=== PATIENT | male | born 1930 | race Caucasian/White ===

== ENCOUNTER 2020-02-24 14:47 | Inpatient (IN) | payer OTHER, SELFPAY ==
[~2020-02-24] VITALS: Ht 185.4 cm; Wt 73.9 kg
[~2020-02-24 14:47] MED LIST: ETOMIDATE 20 MG/ 10 ML VIAL (AMIDATE) IVP ONE; METOCLOPRAMIDE HCL 10 MG/2 ML VIAL IVP ONE; MIDAZOLAM HCL 5 MG/5 ML VIAL IVP ONE; NS IRRIG SOLN 1000 ML IR ONE; ONDANSETRON HCL 4 MG/2 ML VIAL IVP ONE; ROCURONIUM BROMIDE 10 MG/ML (ZEMURON) IV ONE; SEVOFLURANE 15 MIN GAS INH ONE; SUCCINYLCHOLINE CHLORIDE 20 MG/ML(QUELICIN) IVP ONE; WATER FOR IRRIGATION,STERILE 1,000 ML IRRIG.SOLN IR ONE
[2020-02-24 15:11] VITALS: BP_SYST 138
--- NOTE | 2020-02-24 15:18 | NUR ---
CARLENE Vazquez at bedside examining patient.
--- NOTE | 2020-02-24 15:18 | NUR ---
Pt to room 6. placed in [facility], with side rails up. Gown on, Monitor placed.
[2020-02-24 15:37] LABS: BASOPHILS % (AUTO) 0.1 % (0.0-2.0); HEMOGLOBIN 11.6 g/dL (14.0-18.0); LYMPHOCYTES # (AUTO) 0.7 K/uL (1.0-5.5); LYMPHOCYTES % (AUTO) 3.9 % (20.5-51.5); MEAN CORPUSCULAR HEMOGLOBIN 28 pg (27-31); MEAN CORPUSCULAR HGB CONC 32 % (32-36); MEAN CORPUSCULAR VOLUME 86 fL (79.0-98.0); MONOCYTES # (AUTO) 0.7 K/uL (0.0-1.0); MONOCYTES % (AUTO) 3.6 % (1.7-9.3); NEUTROPHILS # (AUTO) 17.4 K/uL (1.8-7.7); NEUTROPHILS % (AUTO) 92.4 % (40.0-70.0); PLATELET COUNT (AUTO) 111 K/uL (130-430); RED BLOOD CELL COUNT(AUTO) 4.18 MIL/uL (4.2-6.2); RED CELL DISTRIBUTION WIDTH 14.2 % (9.0-15.0); WHITE BLOOD COUNT (AUTO) 18.8 K/uL (4.8-10.8)
--- NOTE | 2020-02-24 16:00 | NUR ---
Pt is in [facility] with side rails up, gown on and responding well to verbal stimuli. Speaking loud enough to allow patient to hear, with hearing aides in use.
[2020-02-24 16:10] LABS: INR 1.1 (0.80-1.20); PROTHROMBIN TIME 11.2 SECS (9.5-12.5)
[2020-02-24 16:19] LABS: ANION GAP 14 (5-15); CALCIUM 8.9 mg/dL (8.4-11.0); CHLORIDE 106 mmol/L (98-107); CREATININE 2.01 mg/dL (0.55-1.30); GLUCOSE 139 mg/dL (70-99); POTASSIUM 3.9 mmol/L (3.5-5.1); SODIUM SERUM 140 mmol/L (136-145); UREA NITROGEN, BLOOD 28 mg/dL (8-21)
[2020-02-24 16:27] LABS: ALANINE AMINOTRANSFERASE 191 U/L (12-78); ASPARTATE AMINOTRANSFERASE 286 U/L (10-37); TOTAL BILIRUBIN 4.5 mg/dL (0.0-1.0)
[2020-02-24 16:43] LABS: BILIRUBIN,URINE 1+ (NEGATIVE); GLUCOSE,URINE NEGATIVE (NEGATIVE); KETONES,URINE NEGATIVE (NEGATIVE); LEUKOCYTE ESTERASE ,URINE NEGATIVE (NEGATIVE); NITRITE, URINE NEGATIVE (NEGATIVE); PH,URINE 5.5 (5.0-8.0); PROTEIN URINE 1+ (NEGATIVE)
[2020-02-24] MEDS ORDERED: ASPIRIN 325 MG TABLET PO ONE (16:45)
[2020-02-24 16:49] LABS: BLOOD, URINE TRACE (NEGATIVE); CLARITY/URINE HAZY (CLEAR); COLOR,URINE AMBER (YELLOW)
[2020-02-24] MEDS ORDERED: ASPIRIN 325 MG TABLET ONE (16:53)
--- NOTE | 2020-02-24 17:03 | NUR ---
Pt able to urinate in urinal with assistance. No able to stand without help. Pt Continues to understand and is alert and oriented to person, event and time. HR is low, provider aware.
--- NOTE | 2020-02-24 17:27 | NUR ---
Patient will be admitted to care of Dr. Rodriguez. Admitted to telemetry unit. Waiting for room assignment. SBAR report to be given at bedside with opportunity for questions.
[2020-02-24 17:30] LABS: BACTERIA,URINE FEW /HPF (None Seen); COARSE GRANULAR CASTS,URINE 0-10 /LPF (None Seen); FINE GRANULAR CASTS,URINE 0-10 /LPF (None Seen); MUCUS,URINE 1+ /LPF (None Seen); RBC,URINE 0-3 /HPF (0-3)
--- NOTE | 2020-02-24 17:36 | NUR ---
Unable to obtain medication reconcilliation at this time.
[2020-02-24 17:47] LABS: FREE T4 (FREE THYROXINE) 1.2 ng/dL (0.6-1.6); THYROID STIMULATING HORMONE 1.07 uIu/mL (0.34-4.82)
[2020-02-24 17:48] LABS: DIGOXIN < 0.1 ng/mL (0.80-2.00)
[2020-02-24] MEDS: metroNIDAZOLE 500 mg/NS 100 ML IV SCH (18:28)
[2020-02-24] MEDS ORDERED: cefTRIAXone 2 GM VIAL ONE (18:28)
[2020-02-24] MEDS ORDERED: MORPHINE 2 MG/ML INJ. SYRINGE IVP PRN (18:30)
[2020-02-24] MEDS ORDERED: ONDANSETRON HCL 4 MG/2 ML VIAL IVP PRN (18:30)
[2020-02-24] MEDS ORDERED: NALOXONE HCL 0.4 MG/ML AMP (NARCAN) IVP PRN (18:30)
[2020-02-24] MEDS ORDERED: PIPERACILLIN/TAZO 3.375/DEX-IS 50 ML IV SCH (18:30)
[2020-02-24] MEDS ORDERED: PIPERACILLIN/TAZO 3.375/DEX-IS 50 ML IV ONE (19:00)
--- NOTE | 2020-02-24 19:30 | NUR ---
Medication reconciliation completed with information provided by Daughter via telephone. Any prior medication reconciliation on file was reviewed and corrected.
[2020-02-24] MEDS: NACL 0.9% 1,000 ML IV SCH (19:36)
[2020-02-24] MEDS ORDERED: VITD400 PO (19:54)
[2020-02-24] MEDS ORDERED: NOR10 PO (19:54)
[2020-02-24] MEDS ORDERED: TIMO5DRO15 EACH EYE (19:54)
[2020-02-24] MEDS ORDERED: ALPHAGAN1 OP (19:54)
[2020-02-24] MEDS ORDERED: ISOS60TA4 PO (19:54)
[2020-02-24] MEDS ORDERED: LOSA100T3 PO (19:54)
[2020-02-24] MEDS ORDERED: CHOL2400 MC (19:54)
[2020-02-24] MEDS ORDERED: CARV12.548 PO (19:54)
[2020-02-24] MEDS ORDERED: AZOEYE BOTH EYES (19:54)
--- NOTE | 2020-02-24 19:55 | NUR ---
Spoke to Daughter. States patient is full code at this time.
--- NOTE | 2020-02-24 20:05 | NUR ---
Patient will be admitted to care of Dr. Austin. Admitted to Telemetry unit. Will go to room 105 B. Belongings list completed. Complete and up to date summary report printed. SBAR report to be given at bedside with opportunity for questions.
--- NOTE | 2020-02-24 20:18 | NUR ---
ADMIT NOTE Received pt from ER to the floor with a diagnosis of NSTEMI. Admission process initiated. patient oriented to pain management, safety and call light-teach back done.
[2020-02-24 22:24] VITALS: BP_SYST 116
[2020-02-24] MEDS ORDERED: [UNRECOGNIZED DRUG - CODE] (22:45)
--- NOTE | 2020-02-24 23:00 | NUR ---
RN ROUNDS: Patient is laying in bed and appears to be asleep. He is on 2 L NC with unlabored breathing. Patient is on tele monitor with controlled AFIB. SCD's have been applied as ordered. Patient is NPO. Ensured all safety precautions. Bed is locked and in the lowest position with alarm on and call light within reach. Will continue to monitor patient.
--- NOTE | 2020-02-24 23:43 | NUR ---
PAGED FOR CONSULT FRANCIS STEEN REASON FOR CONSULT: NSTEMI ORDERING PHYSICIAN: DR. CALLAWAY DIALED: [phone] SPOKE TO: ARBEN
[2020-02-25] VITALS: BP_SYST 153
[2020-02-25] MEDS: PIPERACILLIN/TAZOBACTAM 2.25 GM/ D5W 50 ML IV SCH ×8 (00:09→17:35)
--- NOTE | 2020-02-25 00:09 | NUR ---
MEDICATION ADMINISTRATION: Patient is laying is laying in bed with no s/s of distress or discomfort. He is in stable condition. I have administered Zosyn as ordered by , pt tolerating well. Will continue to monitor patient.
[2020-02-25] MEDS ORDERED: FLU VACC QS2020-21 (6 mos & up) 0.5 ML/SYRINGE I.M. PRN (01:00)
--- NOTE | 2020-02-25 02:10 | NUR ---
RN ROUNDS: Patient is resting in bed and appears to be asleep. He has unlabored breathing on 2 L of O2 via NC, tolerating well. Patient is not exhibiting any s/s of distress or discomfort. Will continue to monitor patient. Bed is in the lowest position with alarm on and call light within reach.
--- NOTE | 2020-02-25 04:15 | NUR ---
RN ROUNDS: Patient is laying in bed and is currently asleep. He is not exhibiting any s/s of distress or discomfort. Will continue to monitor patient.
--- NOTE | 2020-02-25 06:07 | NUR ---
PAGED FOR CONSULT REASON FOR CONSULT: CHOLECYSTITIS ORDERING PHYSICIAN: DIALED:[phone] SPOKE TO: BRITTA
--- NOTE | 2020-02-25 06:48 | NUR ---
CLOSING NOTE: Patient is laying in bed, A & O x4. He is not exhibiting any s/s of discomfort or distress. Patient has agreed to and signed consent for HIDA Scan to be done this morning. He does not have any concerns at this time. IV is infusing on RAC, patent and intact. Patient uses the urinal as needed which is at bed side. Ensured all safety precautions. Bed is locked and in the lowest position with alarm on, call light within reach. All needs were met throughout shift. Will endorse to dayshift nurse.
[2020-02-25 07:11] LABS: BASOPHILS % (AUTO) 0.1 % (0.0-2.0); HEMATOCRIT 35.7 % (36-54); HEMOGLOBIN 11.8 g/dL (14.0-18.0); LYMPHOCYTES # (AUTO) 1.1 K/uL (1.0-5.5); LYMPHOCYTES % (AUTO) 4.9 % (20.5-51.5); MEAN CORPUSCULAR HEMOGLOBIN 28 pg (27-31); MEAN CORPUSCULAR HGB CONC 33 % (32-36); MEAN CORPUSCULAR VOLUME 85 fL (79.0-98.0); MONOCYTES # (AUTO) 0.7 K/uL (0.0-1.0); MONOCYTES % (AUTO) 3.1 % (1.7-9.3); NEUTROPHILS % (AUTO) 91.9 % (40.0-70.0); PLATELET COUNT (AUTO) 82 K/uL (130-430); RED CELL DISTRIBUTION WIDTH 14.4 % (9.0-15.0); WHITE BLOOD COUNT (AUTO) 21.8 K/uL (4.8-10.8)
--- NOTE | 2020-02-25 07:25 | NUR ---
Nutrition Update Wellington Scale 15 noted. Pt admitted for NSTEMI Diet: NPO BMI: 21.5 kg/m2 RD to follow per nutrition care standards.
[2020-02-25 07:28] LABS: ALANINE AMINOTRANSFERASE 139 U/L (12-78); ALBUMIN 2.6 g/dL (3.4-4.8); ANION GAP 13 (5-15); ASPARTATE AMINOTRANSFERASE 136 U/L (10-37); CALCIUM 8.3 mg/dL (8.4-11.0); CHLORIDE 107 mmol/L (98-107); CREATININE 1.42 mg/dL (0.55-1.30); GLUCOSE 102 mg/dL (70-99); POTASSIUM 4.1 mmol/L (3.5-5.1); SODIUM SERUM 141 mmol/L (136-145); TOTAL BILIRUBIN 4.5 mg/dL (0.0-1.0); UREA NITROGEN, BLOOD 29 mg/dL (8-21)
--- NOTE | 2020-02-25 07:30 | NUR ---
Notes- Patient is in hida scan at this time.
--- NOTE | 2020-02-25 10:00 | NUR ---
Notes Pt came back from Hida scan, awake and oriented but hard of hearing, has two bilateral hearing aid. ambulate with assistance. denies any pain or discomfort at this time. keep npo per Dr. Osmar HEREDIA. IVF infusing well. call light in reach. Enc to call for help as needed. bed alarm on.
[2020-02-25 10:07] VITALS: BP_SYST 157
[2020-02-25] MEDS: NACL 0.9% 1,000 ML IV SCH ×2 (10:19→14:26)
--- NOTE | 2020-02-25 11:00 | NUR ---
MRI- called MRI, they will do MRCP around [id number]
--- NOTE | 2020-02-25 11:28 | NUR ---
paged Paged Dr. Prasad re: Hida scan results. Waiting for MD to call back.
--- NOTE | 2020-02-25 12:04 | NUR ---
CONSULTATION: REASON FOR CONSULT: ABD PAIN CONSULTING PHYSICIAN: FELI ROSSI MD ORDERED BY: MEME CALLAWAY DR WAS AWARE OF CONSULT WHILE IN HOSPITAL
[2020-02-25 12:35] VITALS: BP_SYST 148
--- NOTE | 2020-02-25 14:00 | NUR ---
Notes In bed, watching tv. denies any pain or discomfort.still waiting for the MRCP
--- NOTE | 2020-02-25 15:20 | NUR ---
Notes Pt went to MRI at this time.
--- NOTE | 2020-02-25 16:56 | NUR ---
Notes pt just came back from MRI, No distress noted. make patient comfortable in bed.
[2020-02-25 16:57] VITALS: BP_SYST 143
--- NOTE | 2020-02-25 18:16 | NUR ---
Notes resting at this time, MRI results not in the computer yet. will endorse to night nurse
[2020-02-25] MEDS: LEVOFLOXACIN 500 MG/D5W 100 ML IV SCH (18:21)
--- NOTE | 2020-02-25 19:30 | NUR ---
OPENING NOTES: Received report from dayshift nurse. Patient is A & 0 x4 with no s/s of distress or discomfort. He is on room air with unlabored breathing. IV noted on RAC, dressing patent and intact. Patient has urinal at bedside. Ensured all safety precautions. Bed is in the lowest position with alarm on. Call light within reach.
[2020-02-25 20:00] VITALS: BP_SYST 149
--- NOTE | 2020-02-25 21:30 | NUR ---
RN ROUNDS: Patient is resting in bed with no s/s of distress or discomfort. He states he is happy that he got to speak with his daughter. Patient does not have any concerns at this time. Bed is in the lowest position and call light within reach. Will continue to monitor.
--- NOTE | 2020-02-25 23:00 | NUR ---
RN ROUNDS: Patient is resting in bed and appears to be asleep. He has unlabored breathing on room air. Will continue to monitor.
[2020-02-26] VITALS: BP_SYST 165
--- NOTE | 2020-02-26 01:00 | NUR ---
RN ROUNDS: Patient is laying in bed and is not having any s/s of distress or discomfort. Bed is in the lowest position with alarm on and call light within reach. Will continue to monitor.
[2020-02-26] MEDS: PIPERACILLIN/TAZOBACTAM 2.25 GM/ D5W 50 ML IV SCH ×10 (01:16→23:40)
[2020-02-26] MEDS: NACL 0.9% 1,000 ML IV SCH (01:23)
--- NOTE | 2020-02-26 03:06 | NUR ---
RN ROUNDS: Patient is laying in bed and appears to be asleep. He is in stable condition. Patient is on room air and has unlabored breathing. Bed is in the lowest position and call light within reach. Will continue to monitor patient.
--- NOTE | 2020-02-26 05:31 | NUR ---
RN ROUNDS: Patient is resting in bed with no s/s of distress or discomfort. His bed is in the lowest position with alarm on and call light within reach. Will continue to monitor patient.
[2020-02-26] MEDS ORDERED: D5NS 500 ML IV ONE (05:45)
[2020-02-26] MEDS: D5NS 1,000 ML IV SCH ×2 (06:25→18:09)
--- NOTE | 2020-02-26 06:35 | NUR ---
CLOSING NOTE: Patient is laying in bed and is currently asleep on room air. He is not exhibiting any s/s of discomfort or distress. IV is infusing on RAC at 100 mL/hr, patent and intact. He continues to be NPO. Patient uses the urinal as needed which is at bed side. Ensured all safety precautions. Bed is locked and in the lowest position with alarm on, call light within reach. All needs were met throughout shift. Will endorse to dayshift nurse.
[2020-02-26 07:17] LABS: BASOPHILS % (AUTO) 0.2 % (0.0-2.0); EOSINOPHILS # (AUTO) 0.1 K/uL (0.0-0.4); EOSINOPHILS % (AUTO) 0.6 % (0.0-4.0); HEMATOCRIT 38.9 % (36-54); HEMOGLOBIN 12.6 g/dL (14.0-18.0); LYMPHOCYTES # (AUTO) 0.8 K/uL (1.0-5.5); LYMPHOCYTES % (AUTO) 4.7 % (20.5-51.5); MEAN CORPUSCULAR HEMOGLOBIN 28 pg (27-31); MEAN CORPUSCULAR HGB CONC 33 % (32-36); MEAN CORPUSCULAR VOLUME 85 fL (79.0-98.0); MONOCYTES # (AUTO) 0.5 K/uL (0.0-1.0); MONOCYTES % (AUTO) 2.8 % (1.7-9.3); NEUTROPHILS # (AUTO) 16.6 K/uL (1.8-7.7); NEUTROPHILS % (AUTO) 91.7 % (40.0-70.0); PLATELET COUNT (AUTO) 84 K/uL (130-430); RED BLOOD CELL COUNT(AUTO) 4.56 MIL/uL (4.2-6.2); RED CELL DISTRIBUTION WIDTH 14.7 % (9.0-15.0); WHITE BLOOD COUNT (AUTO) 18.1 K/uL (4.8-10.8)
--- NOTE | 2020-02-26 07:24 | NUR ---
CALL FROM DR. GARCÍA: Received call from Dr. García requesting to know patient status. Informed him that patient did well throughout shift and had not complaints the only change was elevated blood pressure which was also reported to Dr. Austin and a PRN was ordered for BP. He also requested results for MRCP and labs which are still pending. Dr. García requested that radiology be called for results and call him back. I have endorsed to MASOOD Fregoso dayshift nurse.
[2020-02-26 07:43] LABS: INR 1.1 (0.80-1.20); PROTHROMBIN TIME 11.5 SECS (9.5-12.5)
[2020-02-26 07:59] LABS: ALANINE AMINOTRANSFERASE 93 U/L (12-78); ALBUMIN 2.4 g/dL (3.4-4.8); ANION GAP 9 (5-15); ASPARTATE AMINOTRANSFERASE 66 U/L (10-37); CALCIUM 8.1 mg/dL (8.4-11.0); CHLORIDE 109 mmol/L (98-107); CREATININE 1.24 mg/dL (0.55-1.30); GLUCOSE 94 mg/dL (70-99); LIPASE 69 U/L (73-393); POTASSIUM 4.3 mmol/L (3.5-5.1); SODIUM SERUM 141 mmol/L (136-145); TOTAL BILIRUBIN 4.2 mg/dL (0.0-1.0); UREA NITROGEN, BLOOD 26 mg/dL (8-21)
[2020-02-26 08:00] VITALS: BP_SYST 115
--- NOTE | 2020-02-26 08:00 | NUR ---
A/Ox3,hard of hearing,afebrile,vss,NPO status,IVF continue infusing,voided dark jameson urine in the urinal needs attended,call light & personal items within pt reach,safety maintained.continue to monitor pt.
--- NOTE | 2020-02-26 10:00 | NUR ---
came and seen pt.abdominal u/s done at bedside as per dr alexis.
--- NOTE | 2020-02-26 12:00 | NUR ---
pt resting well in bed,no c/o pain or discomfort,IVF continue infusing,give IV antibiotic due.
--- NOTE | 2020-02-26 14:30 | NUR ---
received & reviewed MRCP result, called and informed of MRCP result positive for cholecystitis,he said he will plan for the surgery but no schedule given yet.continue to monitor pt.
[2020-02-26 16:00] VITALS: BP_SYST 162
--- NOTE | 2020-02-26 16:00 | NUR ---
called and informed of MRCP and abdominal ultrasound results,it's ok for to start clear liquid if pt not going for surgery.
[2020-02-26] MEDS: LEVOFLOXACIN 500 MG/D5W 100 ML IV SCH (17:01)
--- NOTE | 2020-02-26 19:00 | NUR ---
pt resting well in bed,no event throughout am shift,report endorsed to pm shift RN.
[2020-02-26 19:20] VITALS: BP_SYST 152
--- NOTE | 2020-02-26 19:20 | NUR ---
OPENING NOTES Patient is resting, eyes closed, no signs of acute respiratory distress noted. IV site patent, dressings c/d/i, IVF running. Call light within reach, bed alarm on, bed at lowest position. Received report that patient is to possibly have a surgery tomorrow. Will continue to monitor.
--- NOTE | 2020-02-26 20:45 | NUR ---
DR GARCÍA SPEAKING TO FAMILY, RECEIVING CONSENT AT THIS TIME.
[2020-02-27] VITALS (17 sets, daily range): BP systolic 12–184
--- NOTE | 2020-02-27 00:06 | NUR ---
Patient is resting, no signs of distress noted. Will continue to monitor.
[2020-02-27] MEDS: PIPERACILLIN/TAZOBACTAM 2.25 GM/ D5W 50 ML IV SCH ×8 (05:22→23:06)
[2020-02-27] MEDS: D5NS 1,000 ML IV SCH ×2 (05:22→17:41)
[2020-02-27 06:48] LABS: BASOPHILS % (AUTO) 0.1 % (0.0-2.0); EOSINOPHILS % (AUTO) 0.1 % (0.0-4.0); HEMATOCRIT 41.3 % (36-54); HEMOGLOBIN 13.4 g/dL (14.0-18.0); LYMPHOCYTES # (AUTO) 0.8 K/uL (1.0-5.5); LYMPHOCYTES % (AUTO) 5.1 % (20.5-51.5); MEAN CORPUSCULAR HEMOGLOBIN 28 pg (27-31); MEAN CORPUSCULAR HGB CONC 33 % (32-36); MEAN CORPUSCULAR VOLUME 85 fL (79.0-98.0); MONOCYTES # (AUTO) 0.4 K/uL (0.0-1.0); MONOCYTES % (AUTO) 2.6 % (1.7-9.3); NEUTROPHILS # (AUTO) 13.9 K/uL (1.8-7.7); NEUTROPHILS % (AUTO) 92.1 % (40.0-70.0); PLATELET COUNT (AUTO) 101 K/uL (130-430); RED BLOOD CELL COUNT(AUTO) 4.84 MIL/uL (4.2-6.2); RED CELL DISTRIBUTION WIDTH 14.6 % (9.0-15.0); WHITE BLOOD COUNT (AUTO) 15.1 K/uL (4.8-10.8)
--- NOTE | 2020-02-27 07:20 | NUR ---
CLOSING NOTES Patient is resting, eyes closed, no signs of acute respiratory distress noted. IV site patent, dressings c/d/i, IVF running. Call light within reach, bed alarm on, bed at lowest position. Has been NPO since midnight, will be going in for a surgery at 0730 today. Consent has been signed by daughter with a second nurse to witness. All needs met throughout shift. Will endorse care to oncoming shift.
[2020-02-27 07:25] LABS: ALANINE AMINOTRANSFERASE 62 U/L (12-78); ALBUMIN 2.4 g/dL (3.4-4.8); ANION GAP 10 (5-15); ASPARTATE AMINOTRANSFERASE 37 U/L (10-37); CALCIUM 8.3 mg/dL (8.4-11.0); CHLORIDE 110 mmol/L (98-107); CREATININE 1.18 mg/dL (0.55-1.30); GLUCOSE 123 mg/dL (70-99); POTASSIUM 3.5 mmol/L (3.5-5.1); SODIUM SERUM 143 mmol/L (136-145); TOTAL BILIRUBIN 4.6 mg/dL (0.0-1.0); UREA NITROGEN, BLOOD 22 mg/dL (8-21)
--- NOTE | 2020-02-27 07:45 | NUR ---
Opening Note patient laying in bed awake, no signs of distress noted, respirations even and unlabored, unable to obtain morning vital signs due to obtaining consent for surgery as surgery consent changed this morning, spoke with patient's daughter to obtain consent, daughter verbalized understanding and agreed to surgery.
--- NOTE | 2020-02-27 08:08 | NUR ---
Patient left to O.R. patient left in stable condition.
[2020-02-27] MEDS ORDERED: ONDANSETRON HCL 4 MG/2 ML VIAL IVP PRN ×2 (09:30→10:45)
[2020-02-27] MEDS ORDERED: hydrALAZINE HCL 20 MG/ML VIAL IV PRN (09:30)
[2020-02-27] MEDS ORDERED: MORPHINE 4 MG/ML INJ. SYRINGE IVP PRN ×2 (09:30→10:45)
[2020-02-27] MEDS ORDERED: HYDROcodone/ACETAMIN 5-325 MG TAB (NORCO/ VICODIN) PO PRN (10:45)
[2020-02-27] MEDS ORDERED: HYDROmorphone 2 MG/ML VIAL IVP PRN (10:45)
--- NOTE | 2020-02-27 11:15 | NUR ---
Pt here in ICU from OR s/p Lap. Cholecystectomy, Intubated on the vent. Anesthesiologist at bedside. Patient connected to the manager monitoring, scope shows Sinus Rhythm. OR nurse at bedside to recover patient.
--- NOTE | 2020-02-27 12:00 | NUR ---
Vent Settings change: Dr Amanda Epps came and seen patient in the room.Vent Settings was change to Spontaneous (Cpap) Ps=10,fio2=40%,Peep=5.
--- NOTE | 2020-02-27 12:49 | NUR ---
Sputum collection/induction: Sputum collection via ET send to lab by RT.
--- NOTE | 2020-02-27 15:40 | NUR ---
Supriya Page: Spoke with with orders for Abg and to call him for the results.Rt Renetta hooper.
--- NOTE | 2020-02-27 16:16 | NUR ---
Abg results: Spoke with Dr Joseph and relayed abg results.With orders extubate patient and put o2 2l/nc,to keep >90%.Rt Renetta informed.
--- NOTE | 2020-02-27 16:28 | NUR ---
RT NOTE DR. OSMAN UPDATED ON PT'S STATUS. THEN ORDERED EXTUBATION. PT EXTUBATED @1628 AND PLACED ON NC 2 L/M. PT ALERT AND ORIENTED. NO DISTRESS NOTED.
--- NOTE | 2020-02-27 16:28 | NUR ---
Extubate: Rt extubated patient.Put on o2 2l/nc,02 saturation=96-99%. No acute distress.
--- NOTE | 2020-02-27 17:30 | NUR ---
RN ROUNDS: PATIENT DOZED ON AND OFF. FOLLOWS COMMAND AND GOES BACK TO SLEEP.
[2020-02-27] MEDS: LEVOFLOXACIN 500 MG/D5W 100 ML IV SCH (17:40)
--- NOTE | 2020-02-27 19:20 | NUR ---
CLOSING NOTES: ENDORSED TO NIGHT NURSE EDWIN,PATIENT SINUS LANDRY.ASYMPTOMATIC. O2 2L/NC,GOOD SATURATION. IV FLUIDS AND IV ANTIBIOTICS RUNNING AT RIGHT AC INTACT. ABDOMEN BAND AID DRESSING X6 DRY AND INTACT.ESSENCE DRAIN AT RIGHT QUADRANT AREA, EMPTIED AND RECORDED.MEJIA IN PLACE. CONDITION GUARDED.
--- NOTE | 2020-02-27 19:30 | NUR ---
PM ASSESSMENT REPORT RECEIVED FROM YANIRA CORREIA. PT RECEIVED IN BED WITH EYES CLOSED, RESPONDING TO VERBAL STIMULATION. VSS, NO S/S OF ACUTE DISTRESS NOTED. PT ON 2L NC. RAC 18G PATENT AND INTACT INFUSING D5NS @ 100 CC/HR. PT POST OP, INCISION SITES NOTED, DRESSINGS CDI. R SIDE ESSENCE DRAIN IN PLACE. FC DRAINING URINE TO GRAVITY. HOB ELEVATED, BED IN LOWEST POSITION, CALL LIGHT IN REACH. WILL CONTINUE TO MONITOR PT.
--- NOTE | 2020-02-27 20:00 | NUR ---
FAMILY UPDATE SPOKE WITH PTS DAUGHTER SEAN AT THIS TIME. UPDATES PROVIDED AND ALL QUESTIONS ANSWERED. WILL CONTINUE TO MONITOR PT.
[2020-02-28] VITALS (13 sets, daily range): BP systolic 156–179
--- NOTE | 2020-02-28 01:08 | NUR ---
RN ROUNDS PT PROVIDED WITH GALDINO CARE AND PARTIAL BED BATH AT THIS TIME. LINENS CHANGED AND ABD BINDER PLACED PER MD ORDERS. PT TOLERATED WELL AND DENIES ANY PAIN OR DISCOMFORT AT THIS TIME. WILL CONTINUE TO MONITOR PT.
[2020-02-28] MEDS: PIPERACILLIN/TAZOBACTAM 2.25 GM/ D5W 50 ML IV SCH ×8 (05:07→23:56)
[2020-02-28] MEDS: D5NS 1,000 ML IV SCH ×3 (05:08→16:51)
[2020-02-28] MEDS: hydrALAZINE HCL 20 MG/ML VIAL IVP PRN ×2 (05:08→09:18)
--- NOTE | 2020-02-28 07:15 | NUR ---
ENDORSEMENT BEDSIDE REPORT GIVEN TO MARY CORREIA USING RONNY APPROACH. Addendum: 02/28/20 at 0716 by Bhumi Santo RN ASSIGNMENT CHANGED, BEDSIDE REPORT GIVEN TO DAVID CORREIA
[2020-02-28] MEDS: ENOXAPARIN SODIUM 40 MG/0.4 ML SYRINGE SUBCUT SCH (09:15)
--- NOTE | 2020-02-28 09:33 | NUR ---
Report received from Yara CORREIA
--- NOTE | 2020-02-28 09:45 | NUR ---
Dr. Rodriguez at the bedside assessing the pt.
[2020-02-28 10:28] LABS: AFP, TUMOR MARKER 1.1 ng/mL (0.0-8.3); HEPATITIS A AB, IgM Negative (Negative); HEPATITIS B CORE AB, IgM Negative (Negative); HEPATITIS B SURFACE AG Negative (Negative)
--- NOTE | 2020-02-28 10:59 | NUR ---
per Dr. Rodriguez's order. Pt will be transferred to tele unit
--- NOTE | 2020-02-28 11:28 | NUR ---
pt transferred to tele unit 111-b. Report given to Kemi CORREIA. Pt is AAOx3. 2l o2 via NC in place. Abd incisions x 6 are covered w. bandgabie. RLQ ESSENCE drain is in place draining red drainage. IV is on the RAC. Patent and infusing well.
--- NOTE | 2020-02-28 11:30 | NUR ---
opening note received bedside report from ICU, Buffy RN, patient in bed alert, oriented, respirations even, non labored, bed in low and locked position, call light within reach, bed alarm on
--- NOTE | 2020-02-28 11:33 | NUR ---
ROUNDS GIOVANNA BLACKMAN BEDSIDE EXAMINING PATIENT
--- NOTE | 2020-02-28 11:45 | NUR ---
NURSE NOTE ADMINISTERED MEDICAION, PROVIDED ASSESSMENT, INVENTORIED PERSONAL BELONGINGS, BED IN LOW AND LOCKED POSITION, CALL LIGHT WITHIN REACH, MEJIA DRAINING BY GRAVITY, IVF'S RUNNING ORDERED
--- NOTE | 2020-02-28 12:55 | NUR ---
nurse note alla drain bulb became disconnected, cleansed and reattached bulb, left abdomen bulge, soft, non tender, patient denies any pain or discomfort, paged Dr. Prasad
--- NOTE | 2020-02-28 13:16 | NUR ---
nurse note spoke with Dr. Osmar Mclaughlin in surgery, informed Lissette of bulge on patients abdomen, will relay message to Dr. Prasad
--- NOTE | 2020-02-28 13:45 | NUR ---
nurse note patient sitting on the edge of the bed, PT bedside with patient, respirations even non labored, bed in low and locked position, call light within reach.
--- NOTE | 2020-02-28 15:13 | NUR ---
Dietitian Recommendations * Consider advance diet if/when medically appropriate (clear liquid) CHANNING, RD Please refer to Nutrition Assessment for details. Addendum: 02/28/20 at [address] Amended: Links added.
--- NOTE | 2020-02-28 15:35 | NUR ---
nurse note patient in bed, respirations even non labored, bed in low and locked position, call light within reach, bed alarm on. bulge on abdomen 19cm. increasing in size, Spoke with Alaina at Dr. White office she will page Dr. Prasad
[2020-02-28] MEDS: LEVOFLOXACIN 500 MG/D5W 100 ML IV SCH (16:48)
--- NOTE | 2020-02-28 17:30 | NUR ---
nurse note patient in bed, respirations even non labored, bed in low and locked position, call light within reach, bed alarm on
--- NOTE | 2020-02-28 18:48 | NUR ---
PAGED PAGED DOCTOR PADILLA GARCÍA
--- NOTE | 2020-02-28 19:05 | NUR ---
closing notes PROVIDED BEDSIDE SBAR TO NIGHT RN, PATIENT IN BED, RESPIRATIONS EVEN NON LABORED, BED IN LOW AND LOCKED POSITION, ENDORSED CARE TO NIGHT RN Addendum: 02/28/20 at 1945 by Dipesh Clifton RN ENDORSED TO NIGHT RN, PAGETanmay GARCÍA REGARDING BULGE ON LEFT ABDOMEN, PAGED DOCTOR GARCÍA 3 TIMES TODAY REGARDING THIS MATTER WITH NO CALL BACKS
--- NOTE | 2020-02-28 19:05 | NUR ---
OPENING NOTES Patient is resting, watching television, no signs of acute respiratory distress noted. IV site discontinued at this time, catheter intact. Call light within reach, bed alarm on, bed at lowest position. Charles catheter draining by gravity, no kinks, no loops, bag not touching the floor, jameson urine noted. Received report that patient has a distention on the left hand side of the abdomen, measuring about 19 cm. Patient states there is no pain when palpating. Will continue to monitor and awaiting call back from Dr. Prasad at this time.
--- NOTE | 2020-02-28 19:43 | NUR ---
SPOKE TO DR. GARCÍA, MADE AWARE THAT THE LEFT ABDOMEN HAS A DISTENSION MEASURING ABOUT 19 CM UNDER THE ABDOMINAL BINDER. DR. GARCÍA SAYS THAT HE WILL CHECK IT IN THE MORNING.
[2020-02-29] MEDS: hydrALAZINE HCL 20 MG/ML VIAL IVP PRN ×2 (00:02→16:06)
--- NOTE | 2020-02-29 00:06 | NUR ---
Patient is resting, specimen cup provided to patient for sputum sample. Patient is GULKANA and will try to remind patient in the morning. Will continue to monitor.
--- NOTE | 2020-02-29 03:48 | NUR ---
Patient resting, eyes closed. No signs of acute respiratory distress noted. Will continue to monitor.
[2020-02-29] MEDS: D5NS 1,000 ML IV SCH ×2 (04:00→11:21)
[2020-02-29] MEDS: PIPERACILLIN/TAZOBACTAM 2.25 GM/ D5W 50 ML IV SCH ×4 (06:22→11:16)
[2020-02-29] MEDS: ACETAMINOPHEN 325 MG TABLET PO PRN (06:29)
--- NOTE | 2020-02-29 07:28 | NUR ---
Opening Note received bedside SBAR report from production supervisor off shift RN, patient resting in bed, respirations even and unlabored on room air, no acute distress noted, educated patient on use of call light and asked to call for assistance, patient verbalized understanding, call light in reach, bed in low and locked position, bed alarm on.
[2020-02-29 08:00] VITALS: BP_SYST 155
[2020-02-29] MEDS: ENOXAPARIN SODIUM 40 MG/0.4 ML SYRINGE SUBCUT SCH (08:24)
--- NOTE | 2020-02-29 09:45 | NUR ---
RN Rounds patient resting in bed, respirations even and unlabored on room air, patient reports pain is controlled, no acute distress noted.
--- NOTE | 2020-02-29 11:55 | NUR ---
Physician Rounds rounds with Dr. Rodriguez, informed him that patient has a protrusion to left abdomen, informed him that patient has been tolerating clear liquid diet well, and that patient has reported pain has been controlled throughout the shift, physician to enter orders.
[2020-02-29] MEDS ORDERED: metroNIDAZOLE 500 MG TABLET PO ONE (12:00)
[2020-02-29 12:11] VITALS: BP_SYST 154
[2020-02-29 12:25] LABS: BASOPHILS % (AUTO) 0.1 % (0.0-2.0); EOSINOPHILS # (AUTO) 0.1 K/uL (0.0-0.4); EOSINOPHILS % (AUTO) 0.8 % (0.0-4.0); HEMOGLOBIN 14.3 g/dL (14.0-18.0); LYMPHOCYTES # (AUTO) 1.2 K/uL (1.0-5.5); LYMPHOCYTES % (AUTO) 15.6 % (20.5-51.5); MEAN CORPUSCULAR HEMOGLOBIN 28 pg (27-31); MEAN CORPUSCULAR HGB CONC 33 % (32-36); MEAN CORPUSCULAR VOLUME 85 fL (79.0-98.0); MONOCYTES # (AUTO) 0.9 K/uL (0.0-1.0); MONOCYTES % (AUTO) 10.7 % (1.7-9.3); NEUTROPHILS # (AUTO) 5.8 K/uL (1.8-7.7); NEUTROPHILS % (AUTO) 72.8 % (40.0-70.0); PLATELET COUNT (AUTO) 107 K/uL (130-430); RED BLOOD CELL COUNT(AUTO) 5.16 MIL/uL (4.2-6.2)
[2020-02-29 12:35] LABS: ANION GAP 11 (5-15); CALCIUM 7.9 mg/dL (8.4-11.0); CHLORIDE 113 mmol/L (98-107); CREATININE 1.24 mg/dL (0.55-1.30); GLUCOSE 149 mg/dL (70-99); POTASSIUM 3.3 mmol/L (3.5-5.1); SODIUM SERUM 145 mmol/L (136-145); UREA NITROGEN, BLOOD 23 mg/dL (8-21)
[2020-02-29 12:42] LABS: ALANINE AMINOTRANSFERASE 40 U/L (12-78); ALBUMIN 2.1 g/dL (3.4-4.8); ASPARTATE AMINOTRANSFERASE 29 U/L (10-37); TOTAL BILIRUBIN 1.8 mg/dL (0.0-1.0)
--- NOTE | 2020-02-29 14:08 | NUR ---
Ambulated/bed bath assisted patient to ambulate in room with walker, patient ambulated to door and states "I dont want to push it", assisted patient to ambulate back to bed, provided patient bed bath with assistance from WELFARE PROJECT MANAGER, linen and gown changed, patient tolerated well, patient sitting up in bed eating jello snack, call light in reach.
--- NOTE | 2020-02-29 16:00 | NUR ---
Spoke with Physician spoke with Dr. Don, informed him of patients current BP 189/57, HR 42-44 BPM, informed him of orders for PRN apresoline 10mg IVP Q4HR, new medication orders received, verified with read back, per Dr. Don it is okay to administer apresoline now because it will not effect patients HR, spoke with pharmacist Carmelita, per pharmacist apresoline IVP will not effect HR.
[2020-02-29] MEDS: LEVOFLOXACIN 500 MG/D5W 100 ML IV SCH (16:07)
[2020-02-29 16:18] VITALS: BP_SYST 189
--- NOTE | 2020-02-29 16:57 | NUR ---
Called Patients daughter assisted patient to call his daughter Julienne, patient sitting up in bed speaking with his daughter on the telephone.
[2020-02-29 18:33] VITALS: BP_SYST 168
--- NOTE | 2020-02-29 18:34 | NUR ---
Paged Physician reassessed patients BP, current BP 168/55, paged Dr. Rowell (assistant professor of religion for Dr. Gama), awaiting call back.
[2020-02-29] MEDS ORDERED: hydrALAZINE HCL 20 MG/ML VIAL IVP ONE (19:00)
--- NOTE | 2020-02-29 19:00 | NUR ---
Spoke with Physician spoke with Dr. Don, informed him of patients most recent BP 168/55, HR 48, informed him the last dose of apresoline 20mg was given at 1606, informed him of potassium 3.3, new medication orders received, verified with read back.
--- NOTE | 2020-02-29 19:29 | NUR ---
Closing Note bedside SBAR report given to receiving RN, patient resting in bed, respirations even and unlabored on room air, no acute distress noted, patient reports pain is controlled, abdominal binder in place, ESSENCE drain emptied, 30ml out, red drainage, bulb suction maintained, call light in reach, bed in low and locked position, bed alarm on, care endorsed to Rowena RN.
[2020-02-29] MEDS ORDERED: POTASSIUM CHLORIDE 10 MEQ TAB.PRT.SR PO ONE (19:30)
--- NOTE | 2020-02-29 19:50 | NUR ---
Opening notes Pt AAOx4, watching TV. No s/s distress noted. Pt denies pain at this time. ESSENCE drain to R abd noted, lap incision dressings dry and intact, abdominal binder on. IVF infusing at ordered rate R.FA 20G no s/s infiltration. Call light/items within reach. Bed low, locked, siderails up x3, alarm on. To monitor.
[2020-02-29 20:00] VITALS: BP_SYST 159
--- NOTE | 2020-02-29 22:00 | NUR ---
Rounds Pt awake, no s/s distress noted. PO antibiotic administered as ordered. Charles catheter draining to gravity with jameson urine. Call light/items within reach. To monitor.
[2020-02-29] MEDS: metroNIDAZOLE 500 MG TABLET PO SCH (22:09)
[2020-03-01] MEDS: hydrALAZINE HCL 20 MG/ML VIAL IVP PRN ×3 (00:34→12:34)
[2020-03-01 00:42] VITALS: BP_SYST 160
--- NOTE | 2020-03-01 01:30 | NUR ---
Rounds Pt asleep, easily awakens, respirations even and unlabored. IVF infusing at ordered rate R. FA 20G no s/s infiltration. Call light/items within reach. Bed low, locked, siderails ups x3. To monitor.
--- NOTE | 2020-03-01 04:30 | NUR ---
Rounds Pt asleep, no s/s distress noted. Bed low, locked, siderails up x2. To monitor.
[2020-03-01] MEDS: metroNIDAZOLE 500 MG TABLET PO SCH ×2 (05:25→13:34)
[2020-03-01] MEDS: D5NS 1,000 ML IV SCH (05:45)
--- NOTE | 2020-03-01 06:07 | NUR ---
Closing notes Pt asleep, easily awakens. No s/s distress noted. No c/o pain. ESSENCE drain on the right, emptied 20ml brown drainage. Dressing with old drainage, intact. Abd binder on. IVF infusing at ordered rate R. FA 20G no s/s infiltration. Charles catheter draining to gravity, intact. To endorse to AM nurse.
--- NOTE | 2020-03-01 07:12 | NUR ---
Opening Note received bedside SBAR report from sales vendor RN, patient resting in bed, respirations even and unlabored on room air, no acute distress noted, patient reports pain is controlled, abdominal binder in place, educated patient on use of call light and asked to call for assistance, patient verbalized understanding, call light in reach, bed in low and locked position, bed alarm on.
[2020-03-01 07:35] LABS: BASOPHILS % (AUTO) 0.3 % (0.0-2.0); EOSINOPHILS % (AUTO) 0.2 % (0.0-4.0); HEMATOCRIT 38.7 % (36-54); HEMOGLOBIN 12.9 g/dL (14.0-18.0); LYMPHOCYTES # (AUTO) 1.4 K/uL (1.0-5.5); LYMPHOCYTES % (AUTO) 13.2 % (20.5-51.5); MEAN CORPUSCULAR HEMOGLOBIN 28 pg (27-31); MEAN CORPUSCULAR HGB CONC 33 % (32-36); MEAN CORPUSCULAR VOLUME 84 fL (79.0-98.0); MONOCYTES # (AUTO) 0.9 K/uL (0.0-1.0); MONOCYTES % (AUTO) 8.9 % (1.7-9.3); NEUTROPHILS # (AUTO) 8.1 K/uL (1.8-7.7); NEUTROPHILS % (AUTO) 77.4 % (40.0-70.0); PLATELET COUNT (AUTO) 121 K/uL (130-430); RED BLOOD CELL COUNT(AUTO) 4.61 MIL/uL (4.2-6.2); RED CELL DISTRIBUTION WIDTH 14.5 % (9.0-15.0); WHITE BLOOD COUNT (AUTO) 10.5 K/uL (4.8-10.8)
[2020-03-01 07:57] LABS: ALANINE AMINOTRANSFERASE 33 U/L (12-78); ANION GAP 10 (5-15); ASPARTATE AMINOTRANSFERASE 21 U/L (10-37); CALCIUM 7.9 mg/dL (8.4-11.0); CHLORIDE 113 mmol/L (98-107); CREATININE 1.26 mg/dL (0.55-1.30); GLUCOSE 155 mg/dL (70-99); POTASSIUM 3.2 mmol/L (3.5-5.1); SODIUM SERUM 143 mmol/L (136-145); TOTAL BILIRUBIN 1.9 mg/dL (0.0-1.0); UREA NITROGEN, BLOOD 26 mg/dL (8-21)
[2020-03-01 08:00] VITALS: BP_SYST 163
[2020-03-01] MEDS: ENOXAPARIN SODIUM 40 MG/0.4 ML SYRINGE SUBCUT SCH (08:11)
[2020-03-01 10:12] VITALS: BP_SYST 163
--- NOTE | 2020-03-01 10:35 | NUR ---
Physician Rounds Dr. Rodriguez at bedside examining patient, informed him of bulge in left abdomen, per Dr. Rodriguez he will call Dr. Prasad to come and assess the patient, informed Dr. Rodriguez of potassium 3.2, new medication orders received, verified with read back.
--- NOTE | 2020-03-01 10:37 | NUR ---
HIGH ALERT NOTE: Dr. Rodriguez at nurses station, identified within the medical roster to verify physician authenticity.
[2020-03-01] MEDS ORDERED: POTASSIUM CHLORIDE 20 MEQ TAB.PRT.SR PO ONE (10:45)
[2020-03-01] MEDS: ACETAMINOPHEN 325 MG TABLET PO PRN (10:55)
[2020-03-01] MEDS ORDERED: LEVO500T89 PO (11:34)
[2020-03-01 11:36] VITALS: BP_SYST 147
--- NOTE | 2020-03-01 12:22 | NUR ---
Order noted for HH and FWW. S/W pt's Julienne culp, stated that pt has FWW at home that will borrow from . Dtr aware that [facility] will contact them tomorrow for HH PT and tx.
--- NOTE | 2020-03-01 12:54 | NUR ---
JIG BORER SPOKE TO TAMIKA AND MADE AWARE OF HOME PT EVAL AND FRONT WHEEL WALKER
--- NOTE | 2020-03-01 13:44 | NUR ---
Spoke with patients daughter called and spoke with patients daughter Julienne Diallo, updated her on patient, informed her that patient is eating a mechanical soft diet and that if patient tolerates well and is cleared by the surgeon patient may be discharged today, Julienne verbalized understanding, patient sitting up in bed eating mechanical soft lunch, tolerating well, no acute distress noted.
--- NOTE | 2020-03-01 14:10 | NUR ---
D/C ESSENCE drain Dr. Prasad at bedside examining patient, informed him of bulge present on left abdomen, Dr. Prasad removed ESSENCE drain to right abdomen, ESSENCE drain intact, no bleeding, sterile gauze applied to ESSENCE drain removal site, abdominal binder in place, per Dr. Prasad patient is cleared for discharge home.
--- NOTE | 2020-03-01 14:52 | NUR ---
D/C mullins catheter educated patient on purpose and procedure for mullins catheter removal, patient verbalized understanding and is agreeable for removal, 10ml NS removed from mullins catheter balloon, mullins catheter removed, catheter intact, patient tolerated well, informed patient that he will have to void before being discharged home, patient verbalized understanding, encouraged patient to call for assistance, call light in reach.
[2020-03-01 15:38] VITALS: BP_SYST 156
--- NOTE | 2020-03-01 17:03 | NUR ---
Called patients daughter called and spoke with patients daughter Julienne, informed her that patient has been cleared for discharge home, informed her that discharge packet and instructions will be completed in approximately one hour, patient will eat dinner here and if tolerating well he can be discharged home, Julienne verbalized understanding.
--- NOTE | 2020-03-01 17:10 | NUR ---
Voided assisted patient to use urinal, patient voided 20ml, jameson urine, patient assisted to dress for discharge home.
[2020-03-01] MEDS: LEVOFLOXACIN 500 MG/D5W 100 ML IV SCH (17:23)
[2020-03-01 17:34] VITALS: BP_SYST 156
[2020-03-01] MEDS ORDERED: FLU VACC QS2020-21(65UP)/PF 0.7 ML/SYRINGE I.M. PRN (18:00)
--- NOTE | 2020-03-01 18:50 | NUR ---
Voided patient requesting to use urinal, assisted patient to use urinal, 20ml urine output, jameson, patient tolerated well.
--- NOTE | 2020-03-01 19:00 | NUR ---
Discharge provided patient with discharge packet and instructions, went over discharge packet and instructions at length with patients daughter Julienne, allowed time for questions, instructed Julienne and patient to follow up with patients primary care provider within one week, as well as with Dr. Prasad within one week, educated Julienne on purpose and use of abdominal binder, patient and Julienne verbalized understanding, all belongings sent with patient, patient has walker at home for home use, respirations even and unlabored on room air, no acute distress noted, patient taken to parking lot via wheelchair, patient accompanied by Julienne and his son-in-law for discharge home.
--- NOTE | 2020-03-01 19:25 | NUR ---
Spoke with patients daughter patients daughter Julienne called nurses station, she stated that she got patient home and it sounds like he has phlem when coughing, informed chargemaster analyst Hilaria, per chargemaster analyst she recommends having the family monitor the patient unless condition worsens, per Julienne patient is able to breath and is not having any respiratory distress, she also states that patient will sleep in a recliner propped up with pillows, instructed Julienne to call patients primary care provider in the morning to make an appointment, instructed Julienne that if patient is having difficulty breathing, becomes distressed, has chest pain, or any other concern, they can bring the patient to an emergency room or call 911, Julienne verbalized understanding, she states that he is okay right now and able to breath and talk without distress, she states that she will call his primary care provider in the morning for a follow up appointment.
--- NOTE | 2020-03-04 15:43 | NUR ---
SS NOTES/DISCHARGE FOLLOW UP CALL: [employer]PER[employer] phoned pt @[phone] and spoke with Julienne hunter. Per Julienne, pt is admitted at [facility]. No further SS call needed.
== END 2020-03-01 18:55 | disposition home or self-care (01) | DRG 853 ==
LOC: SED 14:47 → STU 17:25 → SIC 02-27 11:06 → STU 02-28 11:19
PROVIDERS: ADMIT Internal Medicine Hospice and Palliative Medicine; ATTEND Internal Medicine Hospice and Palliative Medicine
PROC: 0DNU4ZZ Release Omentum, Percutaneous Endoscopic Approach (ICD-10-PCS; 2020-02-27)
PROC: 8E0W4CZ Robotic Assisted Procedure of Trunk Region, Percutaneous Endoscopic Approach (ICD-10-PCS; 2020-02-27)
PROC: 0FT44ZZ Resection of Gallbladder, Percutaneous Endoscopic Approach (ICD-10-PCS; principal; 2020-02-27 08:10)
PROC: 0BH17EZ Insertion of Endotracheal Airway into Trachea, Via Natural or Artificial Opening (ICD-10-PCS; 2020-02-28)
PROC: 5A1935Z Respiratory Ventilation, Less than 24 Consecutive Hours (ICD-10-PCS; 2020-02-28)
PROC: 5A09357 Assistance with Respiratory Ventilation, Less than 24 Consecutive Hours, Continuous Positive Airway Pressure (ICD-10-PCS; 2020-02-28)
DX: A41.51 Sepsis due to Escherichia coli [E. coli] (principal); J96.01 Acute respiratory failure with hypoxia; I21.A1 Myocardial infarction type 2; I48.20 Chronic atrial fibrillation, unspecified; N17.9 Acute kidney failure, unspecified; K43.6 Other and unspecified ventral hernia with obstruction, without gangrene; K42.0 Umbilical hernia with obstruction, without gangrene; K80.00 Calculus of gallbladder with acute cholecystitis without obstruction; Z20.828 Contact with and (suspected) exposure to other viral communicable diseases; I10 Essential (primary) hypertension; K40.90 Unilateral inguinal hernia, without obstruction or gangrene, not specified as recurrent; D64.9 Anemia, unspecified
CPT/HCPCS: 36415; 36600; 70450-TC; 71045; 74181; 76700-TC; 78226; 80053; 80074; 80162-TC; 81000-TC; 82105; 82803-TC; 82977-TC; 83690-TC; 83880; 84439; 84443-TC; 84484; 85025; 85610-TC; 85730-TC; 86710; 86886; 86900; 86901; 87040-TC; 87081; 87086; 88304; 93005; 93306; 94002; 94640; 96365; 96368; 97110-GP; 97116-GP; 97530-GP; 99291; A9537; C1727; G0378; J0330; J0360; J0696; J1650; J1956; J2250; J2270; J2405; J2543; J2765; J3490; J7030; J7042; J7060